=== PATIENT | female | born 1960 | race Caucasian/White ===

== ENCOUNTER 2018-02-01 05:47 | Day surgery (SDC) | payer OTHER ==
[2018-02-01] MEDS ORDERED: PROPOFOL 0 ML (07:45)
[2018-02-01] MEDS ORDERED: LIDOCAINE 100 MG SYRINGE ×2 (07:45→07:46)
[2018-02-01] MEDS ORDERED: PROPOFOL 40 ML (07:46)
== END 2018-02-01 10:28 | disposition home or self-care (01) ==
LOC: GIL 05:47
DX: Z12.11 Encounter for screening for malignant neoplasm of colon (principal); D12.0 Benign neoplasm of cecum; D12.5 Benign neoplasm of sigmoid colon; K64.8 Other hemorrhoids; J45.909 Unspecified asthma, uncomplicated
CPT/HCPCS: 45380; 88305